=== PATIENT | male | born 2005 | race Caucasian/White ===

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

== ENCOUNTER 2023-01-21 17:05 | Emergency (ER) | payer MEDICAID ==
[~2023-01-21] VITALS: Ht 180.3 cm; Wt 117.9 kg
[~2023-01-21 17:05] MED LIST changes: +AMOX1TAB8 PO; +DEC4 PO
[2023-01-21 18:40] VITALS: BP 108/78
[2023-01-21] MEDS ORDERED: HYDROcodone/APAP 5/325 MG 1 TAB TAB PO ONE (19:25)
[2023-01-21] MEDS ORDERED: ACET-9525 PO (19:25)
[2023-01-21] MEDS ORDERED: IBUP-2213 PO (19:25)
[2023-01-21 20:11] VITALS: BP 104/78
== END 2023-01-21 20:11 | disposition home or self-care (01) ==
LOC: MED 17:05
DX: S62.394A Other fracture of fourth metacarpal bone, right hand, initial encounter for closed fracture (principal); Z79.899 Other long term (current) drug therapy; W22.01XA Walked into wall, initial encounter; Y93.89 Activity, other specified; Y92.89 Other specified places as the place of occurrence of the external cause; Y99.8 Other external cause status
CPT/HCPCS: 73130; 99283